=== PATIENT | female | born 1955 | race Caucasian/White ===

== ENCOUNTER 2022-02-26 11:55 | Inpatient (IN) | payer MEDICAID, MEDICARE ==
[~2022-02-26] VITALS: Ht 167.6 cm; Wt 100.0 kg
[2022-02-26 12:17] LABS: BASOPHILS # (AUTO) 0.1 X10'3 (0-0.2); EOSINOPHILS # (AUTO) 0.2 X10'3 (0-0.9); EOSINOPHILS % (AUTO) 1.9 % (0-6); HEMATOCRIT 39.7 % (35.0-45.0); HEMOGLOBIN 13.1 g/dl (12.0-16.0); LYMPHOCYTES # (AUTO) 1.5 X10'3 (1.1-4.8); LYMPHOCYTES % (AUTO) 18.3 % (21-51); MEAN CORPUSCULAR HEMOGLOBIN 26.2 PG (27.0-31.0); MEAN CORPUSCULAR VOLUME 79.4 FL (78-98); MEAN PLATELET VOLUME 8.8 FL (7.4-10.4); MONOCYTES # (AUTO) 0.6 X10'3 (0-0.9); MONOCYTES % (AUTO) 7.8 % (2-12); NEUTROPHILS # (AUTO) 5.6 X10'3 (1.8-7.7); PLATELET COUNT 275 X10'3 (140-440); RED CELL DISTRIBUTION WIDTH 14.8 % (11.5-14.5)
[2022-02-26 12:29] LABS: APTT 24 SECONDS (22-32)
[2022-02-26 12:30] LABS: ALANINE AMINOTRANSFERASE 33 U/L (12-78); ALKALINE PHOSPHATASE 114 IU/L (46-116); ANION GAP 10 (8-16); ASPARTATE AMINO TRANSFERASE 19 U/L (10-37); BILIRUBIN,TOTAL 0.5 MG/DL (0.1-1.0); BLOOD UREA NITROGEN 14 MG/DL (7-18); BUN/CREATININE RATIO 16.7 (6.6-38.0); CALCIUM 9.2 MG/DL (8.5-10.1); CHLORIDE 104 MMOL/L (99-107); CREATININE 0.84 MG/DL (0.40-0.90); GLUCOSE 176 MG/DL (70-104); POTASSIUM 3.6 MMOL/L (3.5-5.1); SODIUM 142 MMOL/L (135-145); TOTAL CARBON DIOXIDE 27.7 MMOL/L (24-32); TOTAL PROTEIN 7.9 G/DL (6.4-8.2); eGFR 67 ML/MIN
--- NOTE | 2022-02-26 19:15 | NUR ---
assumed care of pt at this time, pt is hypertensive otherwise vitals WNL. pt speech normal. teleneuologist on screen at this time. neuro exam normal w/ eception of sensation on rt side- please see [facility]
[2022-02-26] MEDS ORDERED: iohexol 350MG/ML 100ml bottle IV ONE (19:30)
--- NOTE | 2022-02-26 20:00 | NUR ---
provider Daisy Aguilar PA. made aware of pt hypertension- no new orders at this time. verbally told to permiss hypertension up to systolic of 220 per neurology reccomendation. will continue to monitor.
[2022-02-26] MEDS ORDERED: aspirin 325mg tablet PO ONE (20:23)
--- NOTE | 2022-02-26 22:00 | NUR ---
pt placed in hospital bed for comfort
[2022-02-26] MEDS ORDERED: magnesium 4gm in 100ml NS 100 ML IV PRN (22:35)
[2022-02-26] MEDS ORDERED: acetaminophen 325mg tablet PO PRN (22:35)
[2022-02-26] MEDS ORDERED: PERFLUTREN PROTEIN-A MICROSPHR (Optison) 0.22 MG/ML 3ML VIAL IV PRN (22:35)
[2022-02-26] MEDS ORDERED: magnesium hydroxide 30ml (MOM) UD suspension PO PRN (22:35)
[2022-02-26] MEDS ORDERED: magnesium Cl slow-release 64mg tablet PO PRN (22:35)
[2022-02-26] MEDS ORDERED: potassium Cl 40MEQ/1/2NS 520ml 520 ML IV PRN (22:35)
[2022-02-26] MEDS ORDERED: ondansetron/PF 4mg/2ml inj IV PRN (22:35)
[2022-02-26] MEDS ORDERED: mag hydrox/Alum hydrox/simeth 30ml oral suspension PO PRN (22:35)
[2022-02-26] MEDS ORDERED: potassium Cl 20 mEq SR tablet PO PRN ×2 (22:35)
[2022-02-26] MEDS ORDERED: amLODIPine 5mg tablet PO ONE (22:45)
--- NOTE | 2022-02-27 07:35 | NUR ---
ATTEMPTED TO CALL REPORT TO PCU. THE NURSE JEISON WILL CALL BACK
[2022-02-27] MEDS: K and/or MAG REPLACEMENT MC SCH ×2 (08:00→20:00)
[2022-02-27] MEDS: docusate sod 100mg capsule PO SCH ×2 (08:00→20:00)
--- NOTE | 2022-02-27 08:10 | NUR ---
ATTEMPTED TO CALL REPORT TO PCU NO ANSWER
--- NOTE | 2022-02-27 08:26 | NUR ---
ATTEMPTED TO CALL REPORT TO PCU AGMERVAT NO ANSWER
[2022-02-27 08:44] LABS: BASOPHILS # (AUTO) 0.1 X10'3 (0-0.2); BASOPHILS % (AUTO) 0.7 % (0-1); EOSINOPHILS # (AUTO) 0.2 X10'3 (0-0.9); EOSINOPHILS % (AUTO) 3.2 % (0-6); HEMATOCRIT 37.2 % (35.0-45.0); HEMOGLOBIN 12.4 g/dl (12.0-16.0); LYMPHOCYTES # (AUTO) 1.8 X10'3 (1.1-4.8); MEAN CORPUSCULAR HEMOGLOBIN 26.1 PG (27.0-31.0); MEAN CORPUSCULAR HGB CONC 33.3 g/dL (33.0-36.5); MEAN CORPUSCULAR VOLUME 78.5 FL (78-98); MEAN PLATELET VOLUME 9.2 FL (7.4-10.4); MONOCYTES # (AUTO) 0.8 X10'3 (0-0.9); MONOCYTES % (AUTO) 10.6 % (2-12); NEUTROPHILS # (AUTO) 4.4 X10'3 (1.8-7.7); NEUTROPHILS % (AUTO) 60.5 % (42-75); PLATELET COUNT 248 X10'3 (140-440); RED BLOOD COUNT 4.74 X10'6 (4.20-5.60); RED CELL DISTRIBUTION WIDTH 14.6 % (11.5-14.5); WHITE BLOOD COUNT 7.3 X10'3 (4.5-11.0)
[2022-02-27 08:57] LABS: ALANINE AMINOTRANSFERASE 25 U/L (12-78); ALBUMIN 3.4 G/DL (3.4-5.0); ALKALINE PHOSPHATASE 104 IU/L (46-116); ANION GAP 8 (8-16); ASPARTATE AMINO TRANSFERASE 16 U/L (10-37); BILIRUBIN,TOTAL 0.3 MG/DL (0.1-1.0); BLOOD UREA NITROGEN 16 MG/DL (7-18); BUN/CREATININE RATIO 23.2 (6.6-38.0); CALCIUM 8.8 MG/DL (8.5-10.1); CHLORIDE 104 MMOL/L (99-107); CHOL/HDL RATIO 3.8 (0.00-4.99); CHOLESTEROL 156 MG/DL (0-200); CREATININE 0.69 MG/DL (0.40-0.90); GLUCOSE 142 MG/DL (70-104); HDL CHOLESTEROL 41 MG/DL (35-60); LDL CHOLESTEROL 95 MG/DL (50-100); POTASSIUM 3.6 MMOL/L (3.5-5.1); SODIUM 140 MMOL/L (135-145); TOTAL CARBON DIOXIDE 27.8 MMOL/L (24-32); TOTAL PROTEIN 6.7 G/DL (6.4-8.2); eGFR 85 ML/MIN
[2022-02-27] MEDS: heparin, porcine 5000 units/ml vial SQ SCH ×2 (10:37→20:25)
[2022-02-27] MEDS: aspirin 81mg, enteric-coated 1 TAB TABLET.DR PO SCH (10:37)
[2022-02-27] MEDS: atorvastatin 20mg tablet PO SCH (10:37)
[2022-02-27 11:00] VITALS: BP 190/76
[2022-02-27] MEDS ORDERED: NO HOME MEDS (13:55)
--- NOTE | 2022-02-27 15:48 | NUR ---
PAGER ID: [phone] MESSAGE: Ekaterina [id number] RE: Ophelia Tijerina room 3028B would like to be discharged if OK with you.
--- NOTE | 2022-02-27 17:09 | NUR ---
PAGER ID: [phone] MESSAGE: Ekaterina [phone] RE: Ophelia Tijerina room 3028B - patient would like to go home if we're not doing any more tests.
[2022-02-27 18:00] VITALS: BP 191/78
--- NOTE | 2022-02-27 18:31 | NUR ---
Patient in room PCU 3028. I have received report from Ekaterina ARAYA and had the opportunity to ask questions and assume patient care.
--- NOTE | 2022-02-27 18:44 | NUR ---
Problems reprioritized. Patient report given, questions answered & plan of care reviewed with QUIANA Paula.
[2022-02-27 22:00] VITALS: BP 186/74
[2022-02-28 02:00] VITALS: BP 184/70
[2022-02-28 06:00] VITALS: BP 193/79
[2022-02-28 06:33] LABS: BASOPHILS # (AUTO) 0.1 X10'3 (0-0.2); BASOPHILS % (AUTO) 0.7 % (0-1); EOSINOPHILS # (AUTO) 0.3 X10'3 (0-0.9); EOSINOPHILS % (AUTO) 3.9 % (0-6); HEMATOCRIT 37.2 % (35.0-45.0); HEMOGLOBIN 12.4 g/dl (12.0-16.0); LYMPHOCYTES % (AUTO) 27.8 % (21-51); MEAN CORPUSCULAR HGB CONC 33.3 g/dL (33.0-36.5); MEAN CORPUSCULAR VOLUME 78.1 FL (78-98); MEAN PLATELET VOLUME 9.8 FL (7.4-10.4); MONOCYTES # (AUTO) 0.8 X10'3 (0-0.9); MONOCYTES % (AUTO) 10.6 % (2-12); NEUTROPHILS # (AUTO) 4.1 X10'3 (1.8-7.7); PLATELET COUNT 236 X10'3 (140-440); RED BLOOD COUNT 4.76 X10'6 (4.20-5.60); RED CELL DISTRIBUTION WIDTH 14.5 % (11.5-14.5); WHITE BLOOD COUNT 7.2 X10'3 (4.5-11.0)
[2022-02-28 06:36] LABS: ALANINE AMINOTRANSFERASE 25 U/L (12-78); ALBUMIN 3.3 G/DL (3.4-5.0); ALKALINE PHOSPHATASE 102 IU/L (46-116); ANION GAP 7 (8-16); ASPARTATE AMINO TRANSFERASE 13 U/L (10-37); BILIRUBIN,TOTAL 0.4 MG/DL (0.1-1.0); BLOOD UREA NITROGEN 21 MG/DL (7-18); BUN/CREATININE RATIO 25.6 (6.6-38.0); CHLORIDE 104 MMOL/L (99-107); CREATININE 0.82 MG/DL (0.40-0.90); GLUCOSE 142 MG/DL (70-104); MAGNESIUM 2.1 MG/DL (1.5-2.4); POTASSIUM 3.6 MMOL/L (3.5-5.1); SODIUM 139 MMOL/L (135-145); TOTAL CARBON DIOXIDE 27.7 MMOL/L (24-32); TOTAL PROTEIN 6.7 G/DL (6.4-8.2); eGFR 69 ML/MIN
[2022-02-28] MEDS: K and/or MAG REPLACEMENT MC SCH (08:00)
[2022-02-28] MEDS: atorvastatin 20mg tablet PO SCH (08:00)
[2022-02-28] MEDS: docusate sod 100mg capsule PO SCH (08:00)
--- NOTE | 2022-02-28 08:28 | NUR ---
Problems reprioritized. Patient report given, questions answered & plan of care reviewed with Antionette ARAYA.
[2022-02-28] MEDS: heparin, porcine 5000 units/ml vial SQ SCH (08:54)
[2022-02-28] MEDS: aspirin 81mg, enteric-coated 1 TAB TABLET.DR PO SCH (08:58)
[2022-02-28] MEDS ORDERED: LORazepam 2 mg/ml vial IV ONE ×2 (11:20)
[2022-02-28] MEDS ORDERED: LORazepam 2 mg/ml vial IV PRN (11:35)
[2022-02-28 13:30] VITALS: BP 196/76
[2022-02-28 15:11] LABS: TRIGLYCERIDES 89 MG/DL (20-135)
[2022-02-28 15:32] LABS: HEMOGLOBIN A1C 6.9 % (4.5-6.2)
[2022-02-28] MEDS ORDERED: CLOP75TA15 PO (15:42)
[2022-02-28] MEDS ORDERED: ASPI-1071 PO (15:42)
[2022-02-28] MEDS ORDERED: ATOR20TA66 PO (15:42)
--- NOTE | 2022-02-28 16:40 | NUR ---
STROKE PACKET DISCUSSED WITH PT INCLUDING LDL, A1C, BP. INSTRUCTED PT ON IMPORTANCE OF ESTABLISHING PRIMARY CARE PROVIDER. IV REMOVED, TIP INTACT, NO COMPLICATIONS. BELONGINGS SENT WITH PT. PT DISCHARGED IN STABLE CONDITION TO HOME IN PRIVATE VEHICLE
== END 2022-02-28 16:39 | disposition home or self-care (01) | DRG 66 ==
LOC: ER 11:55 → ED HOLD 22:43 → PCU 3S 02-27 09:34
PROVIDERS: ADMIT Internal Medicine; ATTEND Internal Medicine
PROC: B3251ZZ Computerized Tomography (CT Scan) of Bilateral Common Carotid Arteries using Low Osmolar Contrast (ICD-10-PCS; principal; 2022-02-26)
PROC: B32G1ZZ Computerized Tomography (CT Scan) of Bilateral Vertebral Arteries using Low Osmolar Contrast (ICD-10-PCS; 2022-02-26)
PROC: B32R1ZZ Computerized Tomography (CT Scan) of Intracranial Arteries using Low Osmolar Contrast (ICD-10-PCS; 2022-02-26)
PROC: B3281ZZ Computerized Tomography (CT Scan) of Bilateral Internal Carotid Arteries using Low Osmolar Contrast (ICD-10-PCS; 2022-02-26)
DX: I63.89 Other cerebral infarction (principal); R29.701 NIHSS score 1; I10 Essential (primary) hypertension; Z86.16 Personal history of COVID-19; Z79.899 Other long term (current) drug therapy; Z79.02 Long term (current) use of antithrombotics/antiplatelets; Z79.82 Long term (current) use of aspirin
CPT/HCPCS: 36415; 70450; 70496; 70498; 70551; 71045; 80053; 80061; 83036; 83735; 85025; 85610; 85730; 87081; 93306; 99285; A6402; G0378; J1644; J2060; J3490; Q9967